=== PATIENT | female | born 1945 | race Caucasian/White ===

== ENCOUNTER 2016-10-19 14:30 | Inpatient (IN) | payer MEDICARE ==
--- NOTE | 2016-10-19 14:49 | ED Physician Chart ---
Chief Complaint/HPI - Patient Information Date Seen:: 10/19/16 Time Seen:: 14:40 Chief Complaint:: left leg redness and swelling History of Present Illness:: pt had a fall recently and developed left leg redness and swelling; pt admits to mild left calf pain; no knee pain; no hip pain; no C/P, SOB, Abd. pain; no A/ N/V/D/C, fever, chills, syncope, ALOC Allergies:: Allergies Allergy/AdvReac Type Severity Reaction Status Date / Time MDX No Known Allergies - Nka Allergy Verified 11/21/14 15:05 [No Known Allergies - Nka] Historian:: Patient, EMS Review:: Nurse's Note Reviewed, Transfer documents Reviewed Review of Systems - Review of Systems General/Constitutional: No fever, No chills, No weight loss, No weakness, No diaphoresis, No edema, No loss of appetite Skin: No skin lesions, No rash, No bruising, Other (left leg erythema, swelling) Head: No headache, No light-headedness Eyes: No loss of vision, No pain, No diplopia ENT: No earache, No nasal drainage, No sore throat, No tinnitus Neck: No neck pain, No swelling, No thyromegaly, No stiffness, No mass noted Cardio Vascular: No chest pain, No palpitations, No PND, No orthopnea, No edema Pulmonary: No SOB, No cough, No sputum, No wheezing GI: No nausea, No vomiting, No diarrhea, No pain, No melena, No hematochezia, No constipation, No hematemesis G/U: No dysuria, No frequency, No hematuria Musculoskeletal: No bone or joint pain, No back pain, No muscle pain Endocrine: No polyuria, No polydipsia Psychiatric: Prior psych history, No prior psych history, Depression, No depression, No anxiety, No suicidal ideation Hematopoietic: No bruising, No lymphadenopathy Allergic/Immuno: No urticaria, No angioedema Neurological: No syncope, No focal symptoms, No weakness, No paresthesia, No headache, No seizure, No dizziness, Confusion, No confusion, No vertigo Past Medical History - Past Medical History Past Medical History: HTN, CVA/TIA, Thyroid disorder, Dementia Family History: HTN Social History: Non Smoker, No Alcohol, No Drug Use, Care Facility Surgical History: None Psychiatricy History: None, Depression Medication: Reviewed Family Medical History - Family Member Mother History Unknown: Yes Ethnicity: Non- Living Status: Physical Exam - Physical Examination General/Constitutional: Awake, Well-developed, well-nourished, Alert, No distress, GCS 15, Non-toxic appearing, Ambulatory Head: Atraumatic Eyes: Lids, conjuctiva normal, PERRL, EOMI Skin: Nl inspection, No rash, No skin lesions, No ecchymosis, Well hydrated, No lymphadenopathy Other Skin comments:: Left Leg Cellulitis ENMT: External ears, nose nl, Nasal exam nl, Lips, teeth, gums nl Neck: Nontender, Full ROM w/o pain, No JVD, No nuchal rigidity, No bruit, No mass, No stridor Respiratory: Nl effort/Exclusion, Clear to Auscultation, No Wheeze/Rhonchi/Rales Cardio Vascular: RRR, No murmur, gallop, rubs, NL S1 S2 GI: No tenderness/rebounding/guarding, No organomegaly, No hernia, Normal BS's, Nondistended, No mass/bruits, No McBurney tenderness : No CVA tenderness Extremities: No tenderness or effusion, Full ROM, normal strength in all extremities, No edema, Normal digits & nails Other Extremities comments:: Left Calf Tenderness Neuro/Psych: Alert/oriented, DTR's symmetric, Normal sensory exam, Normal motor strength, Judgement/insight normal, Mood normal, Normal gait, No focal deficits Misc: normal gait, Normal back, No paraspinal tenderness ED Septic Shock - . Is Septic Shock (SBP<90, OR Lactate>4 mmol\L) present?: No
[2016-10-19] MEDS ORDERED: cefTRIAXone 1 GM in Sodium Chloride 0.9% 50 ML IV ONE (15:06)
[2016-10-19 15:16] LABS: % BASOPHILS 0.3 % (0.0-2.0); % EOSINOPHILS 4.9 % (0.0-5.0); % LYMPHOCYTES 18.3 % (20.0-50.0); % NEUTROPHILS 69.5 % (40.0-80.0); MEAN CELL VOLUME 83.1 fl (81-100); MEAN CORPUSCULAR HEMOGLOBIN 28.1 pg (27.0-31.0); MEAN CORPUSCULAR HGB CONC 33.8 pg (28.0-36.0); MEAN PLATELET VOLUME 7.7 fl; PLATELET COUNT 210 Th/cmm (150-400); RED BLOOD COUNT 4.12 Mil/cmm (3.80-5.20); RED CELL DISTRIBUTION WIDTH 12.6 % (11.5-20.0)
[2016-10-19 15:35] LABS: INR 0.96 (0.5-1.4)
[2016-10-19 15:36] LABS: ANION GAP 6.9 (7.0-16.0); BUN/CREATININE RATIO 26.9; CALCIUM SERUM 9.4 mg/dL (8.6-10.3); CARBON DIOXIDE 27.2 mEq/L (21.0-31.0); CREATININE - SERUM 1.3 mg/dL (0.6-1.2); POTASSIUM SERUM 4.1 mEq/L (3.5-5.1)
[2016-10-19 15:56] LABS: TROP I < 0.01 ng/mL (0.01-0.05)
[2016-10-19 15:57] LABS: HEMATOCRIT 34.2 % (35.0-45.0); HEMOGLOBIN 11.6 gm/dL (11.7-16.1); WHITE BLOOD COUNT 5.7 Th/cmm (4.8-10.8)
[2016-10-19 16:48] LABS: URINE BILIRUBIN NEGATIVE (NEGATIVE); URINE BLOOD NEGATIVE (NEGATIVE); URINE COLOR YELLOW; URINE GLUCOSE (UA) NEGATIVE (NEGATIVE); URINE KETONE NEGATIVE (NEGATIVE)
[2016-10-19 16:49] LABS: URINE BACTERIA NONE SEEN /hpf (NONE SEEN); URINE EPITHELIAL CELLS FEW /lpf (FEW); URINE PH 5.5; URINE PROTEIN NEGATIVE (NEGATIVE); URINE RBC 0-2 /hpf (0-5); URINE UROBILINOGEN 0.2 E.U./dL (0.2 - 1.0)
[2016-10-19] MEDS ORDERED: Hydrocodone/APAP 5mg/325mg Tab PO PRN (18:32)
[2016-10-19] MEDS ORDERED: Acetaminophen 500 MG TAB PO PRN (22:08)
--- NOTE | 2016-10-19 23:10 | Admit Criteria Form ---
Admit Criteria Forms - Admit Criteria Diagnosis: CELLULITIS Clinical Indications for Admission to Inpatient Care (Place 'X' for any and all applicable criteria): Admission is indicated for ANY ONE of the following(1)(2)(3)(4)(5): [ ]I. Limb-threatening infection [ ]II. High-risk comorbid condition as indicated by ANY ONE of the following: [ ]a) Uncontrolled diabetes (eg, HbA1c greater than 10% (0.1)) [ ]b) Cirrhosis [ ]c) Neutropenia [ ]d) Asplenia [ ]e) Immunosuppression [ ]f) Symptomatic heart failure [ ]III. Failure of outpatient therapy as indicated by ALL of the following: [ ]a) Progression or no improvement after adequate trial (minimum of 48 hours, with longer period for stable lower extremity infection) [ ]b) Adequate antibiotic regimen as indicated by use of ANY ONE of the following: [ ]i) First-generation cephalosporin (e.g., cephalexin) [ ]ii) Antistaphylococcal penicillin (e.g., dicloxacillin) [ ]iii) Penicillin-allergic patient regimen (clindamycin, extended-spectrum fluoroquinolone, or doxycycline) [ ]iv) Resistant organism (eg, methicillin-resistant Staphylococcus aureus) regimen (6) [ ]c) Outpatient intravenous therapy regimen is not appropriate due to ANY ONE of the following. (7)(8)(9)(10): [ ]i) It was tried and was not successful (eg, progression of infection). [ ]ii) It is not available or cannot be arranged in a clinically appropriate time frame (e.g., the next day). [ ]iii) Clinical presentation (eg, acuity of infection, rapidity of progression, confirmed or suspected bacteremia) is judged to require ALL of the following: [ ]1) Immediate initiation of intravenous therapy ( eg, cannot wait for next day) [ ]2) Intensity of patient monitoring and observation (eg, vital sign measurement, checks for infection progression) that cannot be provided at other than inpatient level of care [ ]IV. Mental status changes [ ]V. Bacteremia [ ]. Hemodynamic instability [ ]VII. Suspected necrotizing soft tissue infection (e.g., gas in tissue)(11)( 12) [ ]VIII. Orbital infection (13)(14) [ ]IX. Associated surgical procedure (e.g., abscess drainage, debridement) not amenable to outpatient, emergency department, or observation care [ ]X. Cutaneous gangrene [ ]XI. High fever (temperature greater than 39.5 degrees C (103.1 degrees F) (oral)) not responsive to outpatient, emergency department, or observation care therapy [X]XIII. Inpatient admission required rather than observation care (Also use Cellulitis: Observation Care as appropriate) because of ANY ONE of the following : [ ]a) Periorbital or perineal infection that is severe or worsening [ ]b) Severe pain requiring acute inpatient management [ ]c) IV fluid to replace significant ongoing (e.g., for over 24 hours) losses (greater than 3L/m2 per day) [ ]d) Compartment syndrome monitoring (17) [ ]e) Strict or protective (eg, laminar flow) isolation [ ]f) Urgent debridement or skin grafting [ ]g) Bone or joint debridement [ ]h) Immediate inpatient surgery [X]i) Other condition, treatment or monitoring requiring inpatient admission Extended stay beyond goal length of stay may be needed for (1)(18): [ ]a) Necrotizing soft tissue infection or fasciitis [ ]b) Gram-negative infection [ ]c) Methicillin-resistant Staphylococcal aureus (MRSA) infection [ ]d) Peripheral venous insufficiency with cellulitis [ ]e) Extensive edema [ ]f) Sepsis or continued Hemodynamic instability [ ]g) Continued high fever or mental status change [ ]h) Bacteremia [ ]i) Active serious comorbid conditions ( eg, heart failure, renal insufficiency) The original [facility] [employer] content created by [facility] [employer] [employer] has been revised. The portions of the content which have been revised are identified through the use of italic text or in bold, and [facility] has neither reviewed nor approved the modified material. All other unmodified content is copyright [facility] Please see references footnoted in the original [facility] edition 2016 Admit Criteria Met?: Yes
[2016-10-19] MEDS: Guaifenesin DM 10 ML UDC PO SCH (23:51)
[2016-10-20] MEDS ORDERED: Piperacillin Sodium/Tazobact 3.375 gm Vial IV ONE (01:02)
[2016-10-20 05:48] LABS: % BASOPHILS 1.1 % (0.0-2.0); % EOSINOPHILS 5.9 % (0.0-5.0); % LYMPHOCYTES 20.5 % (20.0-50.0); % MONOCYTES 8.7 % (2.0-10.0); % NEUTROPHILS 63.8 % (40.0-80.0); HEMATOCRIT 35.2 % (35.0-45.0); HEMOGLOBIN 11.8 gm/dL (11.7-16.1); MEAN CELL VOLUME 83.3 fl (81-100); MEAN CORPUSCULAR HEMOGLOBIN 27.9 pg (27.0-31.0); MEAN CORPUSCULAR HGB CONC 33.5 pg (28.0-36.0); NEUTROPHILE ABSOLUTE 3.3 Th/cmm (1.8-8.0); PLATELET COUNT 225 Th/cmm (150-400); RED BLOOD COUNT 4.23 Mil/cmm (3.80-5.20); RED CELL DISTRIBUTION WIDTH 12.2 % (11.5-20.0); WHITE BLOOD COUNT 5.3 Th/cmm (4.8-10.8)
[2016-10-20 06:02] LABS: INR 0.92 (0.5-1.4); PROTHROMBIN TIME (TEST) 9.6 SECONDS (9.5-11.5)
[2016-10-20 06:06] LABS: ALB/GLOB RATIO 1.2 (1.0-1.8); ALKALINE PHOSPHATASE 85 U/L (34-104); ANION GAP 7.9 (7.0-16.0); BILIRUBIN,TOTAL 0.7 mg/dL (0.3-1.0); BUN - UREA NITROGEN 24 mg/dL (7-25); BUN/CREATININE RATIO 21.8; CALCIUM SERUM 9.3 mg/dL (8.6-10.3); CARBON DIOXIDE 30.1 mEq/L (21.0-31.0); CHLORIDE 107 mEq/L (98-107); CREATININE - SERUM 1.1 mg/dL (0.6-1.2); GLUCOSE 88 mg/dL (70-105); MAGNESIUM 2.3 mg/dL (1.9-2.7); SGOT 13 U/L (13-39); SGPT/ALT 12 U/L (7-52); SODIUM SERUM 141 mEq/L (136-145)
[2016-10-20] MEDS: Levothyroxine 0.05 Mg Tab PO SCH (07:16)
[2016-10-20] MEDS: Guaifenesin DM 10 ML UDC PO SCH ×4 (09:00→22:01)
--- NOTE | 2016-10-20 09:35 | Diagnostic Imaging Report ---
Bilateral lower extremity DVT study HISTORY: Left calf pain COMPARISON: None Technique: Longitudinal and transverse sonographic images of the bilateral lower extremity veins were obtained with doppler analysis. FINDINGS: Due to patient pain along the left distal superficial femoral vein region, compression was not able to be documented this region. The remaining veins of the bilateral lower extremity demonstrate compressibility phasicity and augmentation with no evidence of DVT formation. IMPRESSION: No evidence of DVT within the bilateral lower extremity venous system. Note that due to patient pain, the left superficial femoral vein was not able to be evaluated for compression. Consider follow-up images if warranted.
--- NOTE | 2016-10-20 11:25 | Diagnostic Imaging Report ---
Left knee 3 views Indication: pain Comparison: none Findings: There is moderate narrowing of the medial knee compartment. No evidence of an acute fracture or joint effusion. Mild narrowing of the patellofemoral compartment is also noted. Generalized soft tissue prominence is noted likely due to body habitus. Impression: No evidence of an acute fracture. Moderate degenerative changes. In the setting of trauma, if clinical symptoms persist and there is continued concern for an occult fracture, follow up exams in 5-7 days is suggested.
--- NOTE | 2016-10-20 13:21 | History & Physical ---
PATIENT IDENTIFICATION: A 70-year-old female. CHIEF COMPLAINT: "My daughter brought me to the hospital. HISTORY OF PRESENT ILLNESS: A 70-year-old female who resides in [facility] brought into the Emergency Room for [facility] after the patient had fall and the patient had a swollen knee. The patient was evaluated in the Emergency Room and noted to have no evidence of any fracture, but the patient had cellulitis. The patient was admitted to the hospital for further treatment. The patient has a significant amount of dementia. Her history is unreliable because the patient thinks she lives in [facility] and the [facility] with her daughter and her daughter brought her to the hospital. The patient does not recall she had a history of fall. PAST MEDICAL HISTORY: Remarkable for: 1. Hypertension. 2. Hypothyroidism. 3. Depression. 4. Dementia. 5. DJD. 6. Obesity. MEDICATIONS AT HOME: She is taking Zoloft, Plavix, levothyroxine, lisinopril, Namenda, diclofenac, Aricept, lorazepam, Vicodin and Tylenol. ALLERGIES: The patient is not allergic to any medications. SOCIAL HISTORY: The patient lives in [facility]. The patient does not smoke, does not drink. FAMILY MEDICAL HISTORY: Unavailable. REVIEW OF SYSTEMS: The patient denies any chest pain, short of breath, palpitation, dizziness, nausea, vomiting, diarrhea, dysuria, hematuria, hematochezia, melena. No history of any seizure or syncopal episode. PHYSICAL EXAMINATION: GENERAL: The patient is alert, awake, lying in the bed without any acute distress. VITAL SIGNS: Temperature 98, pulse is 74, respiratory rate is 18, blood pressure 130/70. SKIN: No petechiae, no purpura. HEENT: Normocephalic, atraumatic. Extraocular muscles are intact. Tongue was pink and coated. Poor dentition noted. NECK: Supple, no JVD, no hepatojugular reflux. No lymphadenopathy, thyromegaly or carotid bruit. HEART: Both heart sounds are regular. Grade 2/6 systolic murmur noted. CHEST: Lung equal in expansion, no wheezing, no crackles. ABDOMEN: Soft. No guarding, no rigidity. Liver, spleen palpable. No palpable mass. EXTREMITIES: Remarkable for significant swelling on the left knee and thigh area noted along with upper one-third of the left leg. No calf tenderness noted. Peripheral pulses +1. NEUROLOGIC: Alert, awake, follows commands. Moving upper and lower extremities without any difficulty. AVAILABLE DIAGNOSTIC DATA: The patient had a duplex venous study, which did not reveal any DVT. I do not have any x-ray report. BNP of 133. Troponin is normal. BUN and creatinine is 35 and 1.3. Glucose of 105. D-dimer is 1000. PT and PTTs are normal. CLINICAL IMPRESSION: 1. Status post mechanical fall and left knee swelling with significant amount of bruises, suspect the patient has possibly hematoma. I do not think the patient has cellulitis. 2. Hypertension. 3. Dementia. 4. Degenerative joint disease. 5. Hypothyroidism. PLAN: The patient has been admitted by Dr. Christina to the medical floor. The patient had a Doppler study, which was negative. I will proceed with x-rays of the knee to make sure there is no fracture. If the patient has a fracture, we will have Orthopedic evaluation. The patient was placed on empirical IV antibiotic, which will be discontinued. Adequate pain management will be provided and we will proceed with Orthopedic consultation as well. The patient is to have appropriate home medicine reconciliation and once the patient is cleared, we will proceed with physical therapy. The patient's care plan has been reviewed and discussed with staff. JOB# [id number]
--- NOTE | 2016-10-20 23:24 | Consultation ---
REFERRING PHYSICIAN: Dr. Marcial. REASON FOR CONSULTATION: Left leg cellulitis. HISTORY OF PRESENT ILLNESS: The patient is a 70-year-old female with a past medical history of hypertension, CVA, TIA, thyroid disorder, and dementia, brought in from [facility] for swelling and redness of left leg. She has informed that she had a fall recently. The patient denies any knee swelling. The patient denies a fever or chills. On initial evaluation, the patient's temperature was 98.3 degrees Fahrenheit and WBC count was 5,700. The patient was started on vancomycin IV and Zosyn. Zosyn was discontinued. ID consult was called for further antibiotic management. PAST MEDICAL HISTORY: Hypertension, CVA, thyroid disorder, and dementia. ALLERGIES: No known drug allergies. MEDICATIONS: As per medication reconciliation sheet. Antibiotic, the patient vancomycin and Zosyn. SOCIAL HISTORY: The patient lives at [facility]. No history of smoking, alcohol, or drug use. REVIEW OF SYSTEMS: GENERAL: The patient denies any fever or chills. The patient denies any weight loss or generalized weakness. HEENT: No diplopia, no photophobia, and no sore throat. RESPIRATORY: No cough and no shortness of breath. CARDIOVASCULAR: No chest pain or palpitation. GASTROINTESTINAL: No nausea, no vomiting, no diarrhea, and no constipation. No abdominal pain. GENITOURINARY: No dysuria. No hematuria. MUSCULOSKELETAL: The patient has swelling and redness of left leg. NEUROLOGICAL: No headache and no dizziness. No focal weakness. PHYSICAL EXAMINATION: VITAL SIGNS: Current vital signs show temperature is 97.1 degrees Fahrenheit, pulse 57, respirations 18, and blood pressure is 156/81. GENERAL: The patient is comfortable lying in the bed, not in acute distress. HEENT: Head is normocephalic and atraumatic. Oral cavity moist, pink tongue. Eyes: No pallor, no icterus. PERRLA. EOMI. NECK: Supple. No JVD. Trachea in midline. CHEST: Bilateral breath sounds. No crackles or wheezing. HEART: S1 and S2 within normal limits. Regular rhythm. No murmur and no gallop. ABDOMEN: Soft, nontender, and nondistended. Bowel sounds are present. EXTREMITIES: No cyanosis, no clubbing, no edema. The patient has varicose veins in left lower extremity. The patient has swelling and redness of the left leg. NEUROLOGIC: Alert, awake, and oriented x 3. LABORATORY DATA: Current lab shows WBC count is 5300, hemoglobin 11.8, hematocrit 35.2, platelets are 225,000, and neutrophil is 63.8%. Sodium is 141, potassium 4, chloride 107, bicarb is 30, BUN is 24, creatinine 1.1, and glucose is 88. Urinalysis showed leukocyte esterase moderate and WBC is 6-10 and no bacteria. IMPRESSION: 1. Left leg cellulitis. 2. Hypertension. 3. History of cerebrovascular accident. 4. Thyroid disorder. 5. Dementia. RECOMMENDATIONS: May continue vancomycin alone. If the patient does well, she may change antibiotic to clindamycin 150 mg p.o. 4 times a day for 10 days. Thank you, Dr. Marcial for involving me in taking care of this patient. JOB# [id number] [facility]
[2016-10-21] MEDS: Guaifenesin DM 10 ML UDC PO SCH ×3 (08:51→16:12)
[2016-10-21] MEDS: Levothyroxine 0.05 Mg Tab PO SCH (08:52)
--- NOTE | 2016-10-21 12:35 | Infectious Disease Prog Note ---
Infectious Disease Subjective - Review of Systems Service Date: 10/21/16 Subjective: Left leg pain and swelling is improving. Infectious Disease Objective - Results Result Diagrams: 10/20/16 05:07 10/20/16 05:07 Recent Labs: Laboratory Last Values WBC 5.3 Th/cmm (4.8-10.8) 10/20/16 05:07 RBC 4.23 Mil/cmm (3.80-5.20) 10/20/16 05:07 Hgb 11.8 gm/dL (11.7-16.1) 10/20/16 05:07 Hct 35.2 % (35.0-45.0) 10/20/16 05:07 MCV 83.3 fl (81-100) 10/20/16 05:07 MCH 27.9 pg (27.0-31.0) 10/20/16 05:07 MCHC Differential 33.5 pg (28.0-36.0) 10/20/16 05:07 RDW 12.2 % (11.5-20.0) 10/20/16 05:07 Plt Count 225 Th/cmm (150-400) 10/20/16 05:07 MPV 8.0 fl 10/20/16 05:07 Neutrophils % 63.8 % (40.0-80.0) 10/20/16 05:07 Lymphocytes % 20.5 % (20.0-50.0) 10/20/16 05:07 Monocytes % 8.7 % (2.0-10.0) 10/20/16 05:07 Eosinophils % 5.9 % (0.0-5.0) H 10/20/16 05:07 Basophils % 1.1 % (0.0-2.0) 10/20/16 05:07 Plt Count 225 Th/cmm (150-750) 10/20/16 05:07 PT 9.6 SECONDS (9.5-11.5) 10/20/16 05:07 INR 0.92 (0.5-1.4) 10/20/16 05:07 PTT (Actin FS) 28.7 SECONDS (26.0-38.0) 10/20/16 05:07 Fibrinogen 426.0 mg/dL (200.0-400.0) H 10/20/16 05:07 D-Dimer 1090 ng/mL (100-400) H 10/20/16 05:07 Sodium 141 mEq/L (136-145) 10/20/16 05:07 Potassium 4.0 mEq/L (3.5-5.1) 10/20/16 05:07 Chloride 107 mEq/L (98-107) 10/20/16 05:07 Carbon Dioxide 30.1 mEq/L (21.0-31.0) 10/20/16 05:07 Anion Gap 7.9 (7.0-16.0) 10/20/16 05:07 BUN 24 mg/dL (7-25) 10/20/16 05:07 Creatinine 1.1 mg/dL (0.6-1.2) 10/20/16 05:07 Est GFR ( Amer) > 60.0 ml/min (>90) 10/20/16 05:07 Est GFR (Non-Af Amer) 52.2 ml/min 10/20/16 05:07 BUN/Creatinine Ratio 21.8 10/20/16 05:07 Glucose 88 mg/dL (70-105) 10/20/16 05:07 Whole Bld Lactic Acid 0.82 mmol/L (0.60-1.99) 10/19/16 15:00 Calcium 9.3 mg/dL (8.6-10.3) 10/20/16 05:07 Magnesium 2.3 mg/dL (1.9-2.7) 10/20/16 05:07 Total Bilirubin 0.7 mg/dL (0.3-1.0) 10/20/16 05:07 AST 13 U/L (13-39) 10/20/16 05:07 ALT 12 U/L (7-52) 10/20/16 05:07 Alkaline Phosphatase 85 U/L (34-104) 10/20/16 05:07 Creatine Kinase 116 U/L (30-223) 10/19/16 15:00 Troponin I < 0.01 ng/mL (0.01-0.05) L 10/20/16 05:07 B-Natriuretic Peptide 133.0 pg/mL (5.0-100.0) H 10/19/16 15:00 Total Protein 7.1 gm/dL (6.0-8.3) 10/20/16 05:07 Albumin 3.9 gm/dL (3.7-5.3) 10/20/16 05:07 Globulin 3.2 gm/dL 10/20/16 05:07 Albumin/Globulin Ratio 1.2 (1.0-1.8) 10/20/16 05:07 Urine Source CLEAN C 10/19/16 14:45 Urine Color YELLOW 10/19/16 14:45 Urine Clarity HAZY (CLEAR) 10/19/16 14:45 Urine pH 5.5 10/19/16 14:45 Ur Specific [place] 1.010 (1.005-1.030) 10/19/16 14:45 Urine Protein NEGATIVE mg/dL (NEGATIVE) 10/19/16 14:45 Urine Glucose (UA) NEGATIVE mg/dL (NEGATIVE) 10/19/16 14:45 Urine Ketones NEGATIVE mg/dL (NEGATIVE) 10/19/16 14:45 Urine Blood NEGATIVE (NEGATIVE) 10/19/16 14:45 Urine Nitrate NEGATIVE (NEGATIVE) 10/19/16 14:45 Urine Bilirubin NEGATIVE (NEGATIVE) 10/19/16 14:45 Urine Urobilinogen 0.2 E.U./dL (0.2 - 1.0) 10/19/16 14:45 Ur Leukocyte Esterase MODERATE (NEGATIVE) H 10/19/16 14:45 Urine RBC 0-2 /hpf (0-5) 10/19/16 14:45 Urine WBC 6-10 /hpf (0-5) H 10/19/16 14:45 Ur Epithelial Cells FEW /lpf (FEW) 10/19/16 14:45 Urine Bacteria NONE SEEN /hpf (NONE SEEN) 10/19/16 14:45 Vancomycin Trough < 2.0 ug/mL (10-20) L 10/21/16 09:05 - Physical Exam Vitals and I&O: Vital Signs Temp 97.5 F 10/21/16 08:00 Pulse 60 10/21/16 09:42 Resp 19 10/21/16 08:00 BP 121/74 10/21/16 09:42 Pulse Ox 97 10/21/16 08:00 Intake & Output 10/20/16 10/21/16 10/21/16 18:59 06:59 18:59 Intake Total 800 Balance 800 Intake: Oral 800 Other: # Voids 5 Active Medications: Current Medications Acetaminophen (Tylenol Extra Strength) 500 mg PO Q4H PRN PRN Reason: Pain Stop: 12/18/16 22:07 Acetaminophen/Hydrocodone Bitart ([place] 5mg/325mg) 1 tab PO Q6H PRN PRN Reason: Severe Pain Stop: 12/18/16 18:31 Clindamycin HCl (Cleocin Hcl) 150 mg PO Q8HR BRYANNA Stop: 12/20/16 04:59 Last Admin: 10/21/16 05:54 Dose: 150 mg Clopidogrel Bisulfate (Plavix) 75 mg PO DAILY BRYANNA Stop: 12/19/16 08:59 Last Admin: 10/21/16 08:52 Dose: 75 mg Donepezil HCl (Aricept) 10 mg PO HS BRYANNA Stop: 12/18/16 20:59 Last Admin: 10/20/16 22:01 Dose: Not Given Guaifenesin/Dextromethorphan (Robitussin Dm) 10 ml PO QID BRYANNA Stop: 12/18/16 20:59 Last Admin: 10/21/16 08:51 Dose: 10 ml Vancomycin HCl 1 gm/ Sodium (Chloride) 250 mls @ 165 mls/hr IV Q24H RBYANNA Stop: 12/20/16 09:59 Last Admin: 10/21/16 09:00 Dose: 165 mls/hr Levothyroxine Sodium (Synthroid) 0.05 mg PO QDAC BRYANNA Stop: 12/19/16 07:29 Last Admin: 10/21/16 08:52 Dose: 0.05 mg Lisinopril (Zestril) 10 mg PO DAILY BRYANNA Stop: 12/19/16 08:59 Last Admin: 10/21/16 09:42 Dose: 10 mg Lorazepam (Ativan) 0.5 mg PO Q12H PRN; Protocol PRN Reason: Anxiety Stop: 12/18/16 18:31 Memantine (Namenda) 10 mg PO BID BRYANNA Stop: 12/19/16 08:59 Last Admin: 10/21/16 08:52 Dose: 10 mg Miscellaneous (Vancomycin Iv Per Pharmacy) 1 ea MC PRN BRYANNA Stop: 12/19/16 22:59 Sertraline HCl (Zoloft) 50 mg PO DAILY BRYANNA Stop: 12/19/16 08:59 Last Admin: 10/21/16 08:52 Dose: 50 mg General: no acute distress, well developed, well nourished HEENT: atraumatic, normocephalic, PERRLA, EOMI, moist mucous membrane Neck: supple, no thyromegaly Cardiovascular: S1S2, regular Lungs: clear to auscultation bilaterally, clear to percussion Abdomen: soft, no tender, no distended Extremities: other (Left leg swelling with redness. There is no significant change.), no cyanosis, no clubbing, no edema Neurological: awake, alert, other (confused.) - Procedures Procedures: Procedures Procedure Code Date INJECT/INFUSE NEC 99.29 12/10/12 THER/PROPH/DIAG INJ [place] PUSH 62431 12/10/12 Infectious Disease Assmt/Plan - Problem List Patient Problems: All Active Problems Itching (Acute) L29.9 Rash of back (Acute) R21 Sacrococcygeal pain (Acute) M53.3 - Assessment Assessment: Impression: 1. Cellulitis of the left leg. 2. Dementia. 3. HTN. 4. H/O CVA. 5. Hypothyroidism. - Plan Plan: Continue vanco IV. Will continue clinda po as patient is noncompliant. If needed may continue clinda po for 7 days from now. Ol to from ID point of view. INO PENA.
--- NOTE | 2016-10-21 22:50 | Discharge Summary ---
CHIEF COMPLAINT: Status post fall, pain in the left lower extremity. FINAL DIAGNOSES: Left lower extremity cellulitis, hypertension, dementia, degenerative joint disease, hypothyroidism. HISTORY: This is a 70-year-old female from [facility] was admitted secondary to episode of fall. The patient was noted to have the cellulitis. The patient is confused and unable to take care of herself. The patient was admitted for further management. PHYSICAL EXAMINATION: VITAL SIGNS: Blood pressure 138/77, respirations 18, pulse 60, ____. GENERAL: Elderly female, appears stated age, mildly obese. NECK: Supple. No mass. LUNGS: Equal breath sounds, few rhonchi. HEART: ____ rate and rhythm ____ appreciable murmurs. ABDOMEN: Soft, nontender. EXTREMITIES: Positive redness in the left lower extremity. HOSPITAL COURSE: The patient was admitted to medical floor, continued on IV antibiotic. The patient was referred to Dr. Jun Curiel for ID. The patient was on vancomycin initially, ____ to Clindamycin and ____. CONDITION ON DISCHARGE: Fair. DISCHARGE INSTRUCTIONS: The patient to be readmitted to [facility] facility in the interim. JOB# [id number]
== END 2016-10-21 22:40 | DRG 603 ==
LOC: ER 14:30 → MSI 21:50
PROVIDERS: ADMIT Internal Medicine; ATTEND Internal Medicine
DX: L03.116 Cellulitis of left lower limb (principal); F03.90 Unspecified dementia, unspecified severity, without behavioral disturbance, psychotic disturbance, mood disturbance, and anxiety; I10 Essential (primary) hypertension; M19.90 Unspecified osteoarthritis, unspecified site; E03.9 Hypothyroidism, unspecified; F32.9 Major depressive disorder, single episode, unspecified; E66.9 Obesity, unspecified; W19.XXXA Unspecified fall, initial encounter; Y93.89 Activity, other specified; Y92.89 Other specified places as the place of occurrence of the external cause; Y99.8 Other external cause status; Z86.73 Personal history of transient ischemic attack (TIA), and cerebral infarction without residual deficits; Z82.49 Family history of ischemic heart disease and other diseases of the circulatory system; Z68.31 Body mass index [BMI] 31.0-31.9, adult
CPT/HCPCS: 36415-UA; 73562-TC-LT; 80048-TC; 80053-TC; 80202-TC; 81001-TC; 82550-TC; 83605; 83735-TC; 83880-TC; 84484-TC; 85025-TC; 85049-TC; 85379-TC; 85384-TC; 85610-TC; 85730-TC; 93005; 93970-TC-50; 93971-TC-LT; 94760; J0696; J2543; J3370; Z7610

== ENCOUNTER 2017-05-09 14:33 | Inpatient (IN) | payer MEDICARE ==
--- NOTE | 2017-05-09 15:01 | ED Physician Chart ---
ED Chief Complaint/HPI - Patient Information Date Seen:: 05/09/17 Time Seen:: 14:50 Chief Complaint:: Cough History of Present Illness:: onset x one week of fever, cough, and congestion; no H/As, neck pain, C/P, SOB, Abd. Pain, A/N/V/D/C, chills, or urinary s/s Allergies:: Allergies Allergy/AdvReac Type Severity Reaction Status Date / Time No Known Allergies Allergy Verified 10/19/16 14:50 Vitals:: Vital Signs - 8 hr 05/09/17 14:50 Temp 98.4 F HR 65 RR 17 BP 127/46 O2 Sat % 97 Historian:: Patient Review:: Nurse's Note Reviewed ED Review of Systems - Review of Systems General/Constitutional: Fever, Chills, No weight loss, No weakness, No diaphoresis, No edema, No loss of appetite Skin: No skin lesions, No rash, No bruising Head: No headache, No light-headedness Eyes: No loss of vision, No pain, No diplopia ENT: No earache, Nasal drainage, No sore throat, No tinnitus Neck: No neck pain, No swelling, No thyromegaly, No stiffness, No mass noted Cardio Vascular: No chest pain, No palpitations, No PND, No orthopnea, No edema Pulmonary: No SOB, Cough, No sputum, No wheezing GI: No nausea, No vomiting, No diarrhea, No pain, No melena, No hematochezia, No constipation, No hematemesis G/U: No dysuria, No frequency, No hematuria Musculoskeletal: No bone or joint pain, No back pain, No muscle pain Endocrine: No polyuria, No polydipsia Psychiatric: Prior psych history, Depression, No anxiety, No suicidal ideation, No homicidal ideation, No auditory hallucination, No visual hallucination Hematopoietic: No bruising, No lymphadenopathy Allergic/Immuno: No urticaria, No angioedema Neurological: No syncope, No focal symptoms, No weakness, No paresthesia, No headache, No seizure, No dizziness, Confusion, No vertigo ED Past Medical History - Past Medical History Obtainable: Yes Past Medical History: Thyroid disorder, Dementia Family History: HTN Social History: Non Smoker, No Alcohol, No Drug Use, Single, Care Facility Surgical History: None Psychiatricy History: Depression, Dementia Medication: Reviewed Family Medical History - Family Member Mother History Unknown: Yes Ethnicity: Non- Living Status: ED Physical Exam - Physical Examination General/Constitutional: Awake, Well-developed, well-nourished, Alert, No distress, GCS 15, Non-toxic appearing, Ambulatory Head: Atraumatic Eyes: Lids, conjuctiva normal, PERRL, EOMI Skin: Nl inspection, No rash, No skin lesions, No ecchymosis, Well hydrated, No lymphadenopathy ENMT: External ears, nose nl, Nasal exam nl, Lips, teeth, gums nl Neck: Nontender, Full ROM w/o pain, No JVD, No nuchal rigidity, No bruit, No mass, No stridor Respiratory: Nl effort/Exclusion, No Wheeze/Rhonchi/Rales Other Respiratory comments:: Lumgs: + Rales and Rhonchi Cardio Vascular: RRR, No murmur, gallop, rubs, NL S1 S2 GI: No tenderness/rebounding/guarding, No organomegaly, No hernia, Normal BS's, Nondistended, No mass/bruits, No McBurney tenderness : No CVA tenderness Extremities: No tenderness or effusion, Full ROM, normal strength in all extremities, No edema, Normal digits & nails Neuro/Psych: Alert/oriented, DTR's symmetric, Normal sensory exam, Normal motor strength, Judgement/insight normal, Mood normal, Normal gait, No focal deficits Misc: Normal back, No paraspinal tenderness ED Labs/Radiology/EKG Results - Lab Results Comments:: unremarkable - Radiology Results Results: CXR: + Patchy LLL Infiltrate - EKG Interpretations Rate & Rhythm: NSR Comments:: non-specific st-t changes ED Septic Shock - . Is Septic Shock (SBP<90, OR Lactate>4 mmol\L) present?: No - <6hrs of presentation: Vital Signs: Vital Signs - 8 hr 05/09/17 14:50 Temp 98.4 F HR 65 RR 17 BP 127/46 O2 Sat % 97 ED Reassessment (Disposition) - Reassessment Reassessment Condition:: Improved - Diagnosis Diagnosis:: Dx: Cough; Fever; PNA; Anemia - Aftercare/Follow up Instructions Aftercare/Follow-Up Instructions:: Counseled pt regarding lab results/diagnosis & need follow up, Counseled pt & family regarding lab results/diagnosis & need follow up - Patient Disposition Discharge/Transfer:: Acute Care w/in this hosp Accepting Physician:: Dr. Christina Time Called:: 1800 Admitted to:: Telemetry Admitting Medical Physician:: Dr. Chrisitna Condition at Disposition:: Stable, Improved
[2017-05-09 15:33] LABS: % BASOPHILS 0.6 % (0.0-2.0); % LYMPHOCYTES 10.8 % (20.0-50.0); % MONOCYTES 8.9 % (2.0-10.0); % NEUTROPHILS 77.7 % (40.0-80.0); HEMATOCRIT 34.3 % (41.0-60); HEMOGLOBIN 11.8 gm/dL (12-16); MEAN CELL VOLUME 83.8 fl (81-100); MEAN CORPUSCULAR HEMOGLOBIN 28.7 pg (27.0-31.0); MEAN CORPUSCULAR HGB CONC 34.3 pg (28.0-36.0); MEAN PLATELET VOLUME 7.5 fl; NEUTROPHILE ABSOLUTE 6.1 Th/cmm (1.8-8.0); PLATELET COUNT 219 Th/cmm (150-400); RED BLOOD COUNT 4.09 Mil/cmm (3.80-5.20); RED CELL DISTRIBUTION WIDTH 12.7 % (11.5-20.0)
[2017-05-09 15:34] LABS: WHITE BLOOD COUNT 7.9 Th/cmm (4.8-10.8)
[2017-05-09] MEDS ORDERED: Levofloxacin 500mg/100mL 500 MG/100 ML BAG IV ONE (15:34)
[2017-05-09 15:43] LABS: INR 0.99 (0.5-1.4); PROTHROMBIN TIME (TEST) 10.3 SECONDS (9.5-11.5)
[2017-05-09 15:44] LABS: ALB/GLOB RATIO 1.4 (1.0-1.8); ALKALINE PHOSPHATASE 96 U/L (34-104); ANION GAP 10.4 (7.0-16.0); BILIRUBIN,TOTAL 0.4 mg/dL (0.3-1.0); BUN - UREA NITROGEN 24 mg/dL (7-25); CALCIUM SERUM 8.9 mg/dL (8.6-10.3); CARBON DIOXIDE 25.5 mEq/L (21.0-31.0); CHLORIDE 104 mEq/L (98-107); CREATININE - SERUM 1.2 mg/dL (0.6-1.2); GLUCOSE 116 mg/dL (70-105); POTASSIUM SERUM 3.9 mEq/L (3.5-5.1); SGOT 13 U/L (13-39); SGPT/ALT 11 U/L (7-52); SODIUM SERUM 136 mEq/L (136-145)
[2017-05-09 15:57] LABS: URINE BILIRUBIN SMALL (NEGATIVE); URINE BLOOD NEGATIVE (NEGATIVE); URINE GLUCOSE (UA) NEGATIVE (NEGATIVE); URINE KETONE 15 mg/dL (NEGATIVE); URINE PH 5.5 (4.6 - 8.0); URINE PROTEIN NEGATIVE (NEGATIVE)
[2017-05-09 16:02] LABS: URINE COLOR YELLOW
[2017-05-09 16:03] LABS: URINE EPITHELIAL CELLS MODERATE /lpf (FEW); URINE RBC NONE SEEN /hpf (0-5)
[2017-05-09 16:10] LABS: URINE BACTERIA 1+ /hpf (NONE SEEN); URINE HYALINE CAST 0-2 /lpf (0-2)
[2017-05-09 20:49] VITALS: BP 146/75
[2017-05-09] MEDS ORDERED: Sodium Chloride 0.9% 1,000 ML IV SCH (21:30)
[2017-05-09] MEDS ORDERED: Albuterol/Ipratropium Neb 3 ML AERS HHN ONE (21:50)
[2017-05-09] MEDS: Azithromycin 500 MG in Sodium Chloride 0.9% 250 ML IV SCH (22:53)
[2017-05-10] MEDS: Promethazine DM 6.25/15mg-5mL 5 ML SYR PO PRN ×3 (00:11→16:16)
[2017-05-10] MEDS: Albuterol/Ipratropium Neb 3 ML AERS HHN PRN ×2 (03:40→18:59)
[2017-05-10 05:28] LABS: % EOSINOPHILS 2.9 % (0.0-5.0); % LYMPHOCYTES 15.2 % (20.0-50.0); % MONOCYTES 8.4 % (2.0-10.0); % NEUTROPHILS 73.5 % (40.0-80.0); HEMATOCRIT 33.5 % (41.0-60); HEMOGLOBIN 11.4 gm/dL (12-16); MEAN CELL VOLUME 83.7 fl (81-100); MEAN CORPUSCULAR HEMOGLOBIN 28.6 pg (27.0-31.0); MEAN CORPUSCULAR HGB CONC 34.1 pg (28.0-36.0); MEAN PLATELET VOLUME 7.7 fl; NEUTROPHILE ABSOLUTE 5.6 Th/cmm (1.8-8.0); PLATELET COUNT 210 Th/cmm (150-400); RED CELL DISTRIBUTION WIDTH 12.6 % (11.5-20.0); WHITE BLOOD COUNT 7.5 Th/cmm (4.8-10.8)
[2017-05-10 05:57] LABS: ANION GAP 8.8 (7.0-16.0); BUN - UREA NITROGEN 19 mg/dL (7-25); CALCIUM SERUM 8.6 mg/dL (8.6-10.3); CARBON DIOXIDE 25.9 mEq/L (21.0-31.0); CHLORIDE 105 mEq/L (98-107); GLUCOSE 95 mg/dL (70-105); POTASSIUM SERUM 3.7 mEq/L (3.5-5.1); SODIUM SERUM 136 mEq/L (136-145)
[2017-05-10] MEDS ORDERED: Hydrocodone/APAP 5mg/325mg Tab PO PRN (06:08)
[2017-05-10] MEDS ORDERED: Levothyroxine 0.05 Mg Tab PO SCH (07:30)
--- NOTE | 2017-05-10 08:22 | Diagnostic Imaging Report ---
CHEST X-RAY: AP view INDICATION: pain COMPARISON: None FINDINGS: Mild chronic lung changes are seen. No focal consolidation or effusions. Cardiomegaly is noted. Degenerative changes of the spine are noted. IMPRESSION: Mild chronic lung changes. No focal consolidation unaffected. Cardiomegaly.
--- NOTE | 2017-05-10 08:36 | Diagnostic Imaging Report ---
CHEST X-RAY: AP view INDICATION: Pneumonia COMPARISON: 05/09/2017 FINDINGS: There is no focal consolidation or pleural effusions . Chronic changes are noted. Cardiomegaly is noted. IMPRESSION: Chronic lung changes with no focal consolidation identified. Cardiomegaly.
[2017-05-10] MEDS ORDERED: cefTRIAXone 1 GM in Sodium Chloride 0.9% 50 ML IV SCH (09:00)
--- NOTE | 2017-05-10 10:23 | History & Physical ---
ADMIT DATE: 05/10/2017 CHIEF COMPLAINT: Generalized weakness, tactile fevers, and cough. HISTORY OF PRESENT ILLNESS: This is a 71-year-old lady who was transferred from [facility] for the above-mentioned complaints. She apparently has been having these symptoms for the last 2-3 days and was feeling more tired and so she decided to come into the ER. She has a history of mild dementia, essential hypertension, and hypothyroidism. She denies any major secretions production, although she does have a cough as noted above. She also denies other symptomatology such as sore throat, chest pain, nausea, vomiting, or diarrhea. There are no known sick contacts. PAST MEDICAL HISTORY: Hypothyroidism, hypertension, and dementia. PAST SURGICAL HISTORY: She had a tubal ligation years ago. FAMILY HISTORY: Positive for hypertension. SOCIAL HISTORY: Nonsmoker, nondrinker. No drug usage. Lives at [facility]. She used to work for the [employer] department for many years. ALLERGIES: NKDA. OUTPATIENT MEDICATIONS: Tylenol 500 mg q. 4 p.r.n. for pain, Plavix 75 every day, diclofenac 50 b.i.d., Aricept 10 at bedtime, [place] 5/325 q. 6 hours p.r.n. for severe pain, levothyroxine 50 mcg every day, lisinopril 10 mg every day, lorazepam 0.5 q.12h., Namenda 10 mg b.i.d., and sertraline 100 mg every day. REVIEW OF SYSTEMS: CONSTITUTIONAL: Tactile fevers and chills and no recent weight loss. CARDIAC: No chest pain or palpitations. PULMONARY: As noted on the HPI, mostly nonproductive cough. GASTROINTESTINAL: No nausea, vomiting, no diarrhea, no abdominal pain. GENITOURINARY: Denies any bladder habit changes including no dysuria or hematuria. NEUROLOGIC: No changes in vision, no headaches, no syncopal episodes. LABORATORY DATA: White count on admission 7.9, H and H , platelet count of 219. INR 0.99. Chemistry was essentially within normal limits with glucose of 116. Lactic acid 1.06, calcium 8.9. LFTs were within normal limits. BNP 101. Albumin 3.9. UA positive for ketones, small bilirubin, trace leukocyte esterase, 1+ bacteria. DIAGNOSTICS: Initial x-rays, chronic lung changes with no focal consolidation noted. There is some cardiomegaly. ASSESSMENT: 1. Bronchitis versus early pneumonia. 2. Urinary tract infection. 3. Fever, rule out sepsis, appears hemodynamically stable at this time. 4. Essential hypertension. 5. Hypothyroidism. 6. History of dementia. PLAN: The patient has been admitted to the medical floor for further management and care. She has been placed on NS at 75 mL per hour and has been placed on community-acquired pneumonia IV antibiotics coverage, namely Zithromax and Rocephin. Pulmonary supportive care with DuoNeb will be implemented and sputum C and S will also be asked for. The patient will be kept on her other medications as scheduled. Followup x-ray will be done in the morning and her medications will be resumed as scheduled. [facility]# [id number] KATHERINE
[2017-05-10] MEDS ORDERED: VTE Chemical Prophylaxis Screen/Admission MC PRN (15:51)
[2017-05-10] MEDS: Azithromycin 500 MG in Sodium Chloride 0.9% 250 ML IV SCH (20:59)
--- NOTE | 2017-05-12 10:15 | Discharge Summary ---
DATE OF DISCHARGE: 05/11/2017 ADMITTING DIAGNOSES: 1. Generalized weakness. 2. Tactile fevers. 3. Bronchitis versus early pneumonia. 4. Urinary tract infection. SECONDARY DIAGNOSES: Include history of essential hypertension, history of hypothyroidism, and history of dementia. DISCHARGE DIAGNOSES: 1. Generalized weakness. 2. Tactile fevers. 3. Bronchitis versus early pneumonia. 4. Urinary tract infection. CONSULTANTS: There were no consultants used during this admission. MAJOR PROCEDURES: None. MEDICATIONS ON TRANSFER: Rocephin 1 g q.24 hours, Zithromax 1 g q.24 hours, DuoNeb q.4 hours while awake and p.r.n., Tylenol 500 p.r.n. for pain, Plavix 75 every day, diclofenac 50 b.i.d., Aricept 10 mg at bedtime, [place] 5/325 q.6 hours p.r.n. for severe pain, levothyroxine 50 mcg daily, lisinopril 10 mg daily, lorazepam 0.5 q.12 hours, Namenda 10 mg b.i.d., and sertraline 100 mg daily. BRIEF HOSPITAL COURSE: This is a 71-year-old female who presented from [facility] with a 2-3 day history of generalized weakness, tactile fevers and cough. Pertinent findings included UA consistent with a UTI and an x-ray showing possible bronchitis versus early pneumonia. The patient was admitted to the medical floor, was placed on IV antibiotics, supportive care and IV fluids. The patient was transferred to another acute hospital given insurance issues. CONDITION ON DISCHARGE: Stable. DISPOSITION: The patient was transferred to acute hospital for further management and care, again, given insurance issues. [facility]# [id number] KATHERINE
== END 2017-05-11 02:15 | disposition short-term general hospital (02) | DRG 689 ==
LOC: ER 14:33 → TELE 19:28 → MSI 05-10 09:23
PROVIDERS: ADMIT Internal Medicine; ATTEND Internal Medicine
DX: N39.0 Urinary tract infection, site not specified (principal); J18.9 Pneumonia, unspecified organism; F03.90 Unspecified dementia, unspecified severity, without behavioral disturbance, psychotic disturbance, mood disturbance, and anxiety; D64.9 Anemia, unspecified; J40 Bronchitis, not specified as acute or chronic; F32.9 Major depressive disorder, single episode, unspecified; I10 Essential (primary) hypertension; E03.9 Hypothyroidism, unspecified; Z82.49 Family history of ischemic heart disease and other diseases of the circulatory system; Z98.51 Tubal ligation status
CPT/HCPCS: 36415-UA; 71010-TC; 80048-TC; 80053-TC; 81001-TC; 82550-TC; 83605; 83735-TC; 83880-TC; 85025-TC; 85610-TC; 85730-TC; 87070; 93005; 94640; 94760; J0456; J0696; J1644; J1956; J7030; Z7610

== ENCOUNTER 2017-08-31 16:14 | Emergency (ER) | payer MEDICARE ==
--- NOTE | 2017-08-31 17:43 | ED Physician Chart ---
ED Chief Complaint/HPI - Patient Information Date Seen:: 08/31/17 Time Seen:: 16:25 Chief Complaint:: Wound Check History of Present Illness:: pt is S/P sutured left thumb x 2 weeks; pt has no complaints; pt denies recent trauma, H/As, S/T, neck pain, C/P, SOb, cough, Abd. Pain, A/N/V/D/C, fever, chills, or urinary s/s; pt's last tetanus shot; < 5 years; UTD Allergies:: Allergies Allergy/AdvReac Type Severity Reaction Status Date / Time No Known Allergies Allergy Verified 10/19/16 14:50 Vitals:: Vital Signs - 8 hr 08/31/17 08/31/17 16:29 17:32 Temp 97.6 F 97.8 F HR 61 74 RR 16 16 BP 143/58 132/75 O2 Sat % 95 98 Historian:: Patient, EMS Review:: Nurse's Note Reviewed, Old Chart Reviewed, EMS run form Reviewed ED Review of Systems - Review of Systems General/Constitutional: Fever, No chills, No weight loss, No weakness, No diaphoresis, No edema, No loss of appetite Skin: Skin lesions, No rash, No bruising Head: No headache, No light-headedness Eyes: No loss of vision, No pain, No diplopia ENT: No earache, Nasal drainage, No sore throat, No tinnitus Neck: No neck pain, No swelling, No thyromegaly, No stiffness, No mass noted Cardio Vascular: No chest pain, No palpitations, No PND, No orthopnea, No edema Pulmonary: No SOB, Cough, No sputum, No wheezing GI: No nausea, No vomiting, No diarrhea, No pain, No melena, No hematochezia, No constipation, No hematemesis G/U: No dysuria, No frequency, No hematuria, No nacturia Photographic Hand Developer: No vaginal discharge, No abnormal vaginal bleed, No contraction Musculoskeletal: No bone or joint pain, No back pain, No muscle pain Endocrine: No polyuria, No polydipsia Psychiatric: No prior psych history, No depression, No anxiety, No suicidal ideation, No homicidal ideation, No auditory hallucination, No visual hallucination Hematopoietic: No bruising, No lymphadenopathy Allergic/Immuno: No urticaria, No angioedema Neurological: No syncope, No focal symptoms, No weakness, No paresthesia, No headache, No seizure, No dizziness, No confusion, No vertigo ED Past Medical History - Past Medical History Obtainable: Yes Past Medical History: Asthma/COPD, Dyslipidemia, Thyroid disorder, Arthritis, Dementia Family History: Diabetes Melitus, HTN Social History: Non Smoker, No Alcohol, No Drug Use, Single, Care Facility Surgical History: None Psychiatricy History: Dementia Medication: Reviewed Family Medical History - Family Member Mother History Unknown: Yes Ethnicity: Non- Living Status: ED Physical Exam - Physical Examination General/Constitutional: Awake, Well-developed, well-nourished, Alert, No distress, GCS 15, Non-toxic appearing, Ambulatory Head: Atraumatic Eyes: Lids, conjuctiva normal, PERRL, EOMI Skin: Nl inspection, No rash, No skin lesions, No ecchymosis, Well hydrated, No lymphadenopathy Other Skin comments:: Left Thumb Wound; healing well; mild redness; no discharge; full ROMs of all joints; no septic joints; no ligament instability; no ligament laxity; good motor, tendon, and sensory functions; good NV functions ENMT: External ears, nose nl, Nasal exam nl, Lips, teeth, gums nl Neck: Nontender, Full ROM w/o pain, No JVD, No nuchal rigidity, No bruit, No mass, No stridor Other Neck comments:: supple; no meningeal signs; no cervical tenderness; no bruits Respiratory: Nl effort/Exclusion, Clear to Auscultation, No Wheeze/Rhonchi/Rales Cardio Vascular: RRR, No murmur, gallop, rubs, NL S1 S2, Carotid/Femoral/Distal pulses equal bilaterally GI: No tenderness/rebounding/guarding, No organomegaly, No hernia, Normal BS's, Nondistended, No mass/bruits, No McBurney tenderness Other GI comments:: no pulsatile masses : No CVA tenderness Extremities: No tenderness or effusion, Full ROM, normal strength in all extremities, No edema, Normal digits & nails Neuro/Psych: DTR's symmetric, Normal sensory exam, Normal motor strength, Judgement/insight normal, Mood normal, Normal gait, No focal deficits Other Neuro/Psych comments:: Disoriented and Confused Misc: Normal back, No paraspinal tenderness ED Assessment - Procedures Procedures:: Removal of all sutures; no complications; Neosporin Ointment and dressing applied Informed Consent: Procedure/risk/benefits explained by MD: Yes ED Septic Shock - . Is Septic Shock (SBP<90, OR Lactate>4 mmol\L) present?: No - <6hrs of presentation: Vital Signs: Vital Signs - 8 hr 08/31/17 08/31/17 16:29 17:32 Temp 97.6 F 97.8 F HR 61 74 RR 16 16 BP 143/58 132/75 O2 Sat % 95 98 ED Reassessment (Disposition) - Reassessment Reassessment:: pt is asymptomatic upon discharge Reassessment Condition:: Improved - Diagnosis Diagnosis:: Left Thumb Wound; Cellulitis; Wound Infection; Sutures Removal; Dementia - Aftercare/Follow up Instructions Aftercare/Follow-Up Instructions:: Counseled pt regarding lab results/diagnosis & need follow up, Refer to Discharge Instructions, Counseled pt & family regarding lab results/diagnosis & need follow up Medication Prescribed:: Rx: keflex 500mg po qid x 10 days; Neosporin Ointment bid and dressing x 14 days ; Wound Care instructions - Patient Disposition Discharge/Transfer:: [facility] SNF Condition at Disposition:: Stable, Improved (RTER prn if existing s/s reoccur and/or get worse and/or any other new s/s occur; ACIs given for all above Dx; Refer to Vascular Surgeon/Hand Specialist/Orthopedist/Top Cutter YOGI; F/U with PMD in one day or prn; RTER prn if concerned) ED Discharge Plan - Patient Disposition Prescriptions: Cephalexin [Keflex] 500 mg PO QID #40 cap Neomycin [place]/Bacitrac Zn/Poly [Neosporin] 1 appl TP BID 14 Days #1 oin Instructions: Suture Removal
== END 2017-08-31 17:30 | disposition home or self-care (01) ==
LOC: ER 16:14
DX: L03.012 Cellulitis of left finger (principal); F03.90 Unspecified dementia, unspecified severity, without behavioral disturbance, psychotic disturbance, mood disturbance, and anxiety; J45.909 Unspecified asthma, uncomplicated; J44.9 Chronic obstructive pulmonary disease, unspecified; E78.5 Hyperlipidemia, unspecified; Z48.02 Encounter for removal of sutures
CPT/HCPCS: 99283; J0696; Z7502